=== PATIENT | male | born 1990 | race American Indian/Alaskan Native ===

== ENCOUNTER 2020-08-13 12:15 | Emergency (ER) | payer SELFPAY ==
[2020-08-13] MEDS ORDERED: Thiamine 100 MG Tab PO ONE (12:21)
--- NOTE | 2020-08-13 12:23 | EDM.PDOCBH ---
ED HPI GENERAL MEDICAL PROBLEM - General Chief Complaint: Drug or Alcohol Abuse Stated Complaint: [facility] Time Seen by Provider: 08/13/20 12:20 Source of Information: Reports: Patient, EMS, Old Records History Limitations: Reports: No Limitations - History of Present Illness INITIAL COMMENTS - FREE TEXT/NARRATIVE: 30 yo male here via EMS after a couple week course of binge drinking. Wants to go to [facility], but if they don't have beds available "he'll just go home". Was upset over the break up of a girl. Has also been taking a friend's clonidine 0.1 mg tablets recently, not sure how he has been taking them. Onset: Unknown/Unsure Duration: Chronic Location: Reports: Generalized Quality: Reports: Other (pain not reported) Improves with: Reports: Other (not drinking alcohol) Worsens with: Reports: Other (drinking alcohol) Context: Reports: Other (See HPI) Left Lower Chest Pain Score (Numeric/FACES): 5 - Related Data Allergies Allergy/AdvReac Type Severity Reaction Status Date / Time No Known Allergies Allergy Verified 04/17/15 00:18 Home Meds: Home Meds NK [No Known Home Meds] 04/17/15 [History] Past Medical History - Past Health History Medical/Surgical History: Denies Medical/Surgical History ED ROS GENERAL - Review of Systems Review Of Systems: See Below Constitutional: Reports: No Symptoms HEENT: Reports: No Symptoms Respiratory: Reports: No Symptoms Cardiovascular: Reports: No Symptoms GI/Abdominal: Reports: No Symptoms : Reports: No Symptoms Musculoskeletal: Reports: No Symptoms Skin: Reports: No Symptoms Neurological: Reports: Numbness (some leg bilat numbness reported) Psychiatric: Reports: Anxiety ED EXAM, BEHAVIORAL HEALTH - Physical Exam Exam: See Below Exam Limited By: No Limitations General Appearance: Alert, WD/WN, No Apparent Distress, Anxious Eye Exam: Bilateral Eye: Normal Inspection Ears: Normal External Exam, Normal Canal, Hearing Grossly Normal Nose: Normal Inspection, No Blood Throat/Mouth: Normal Inspection, Normal Lips, Normal Oropharynx, Normal Voice, No Airway Compromise Head: Atraumatic, Normocephalic Neck: Normal Inspection Respiratory/Chest: No Respiratory Distress, Lungs Clear, Normal Breath Sounds, No Accessory Muscle Use Cardiovascular: Regular Rate, Rhythm, No Edema, Tachycardia GI/Abdominal: Normal Bowel Sounds, Soft, Non-Tender, No Distention Back Exam: Normal Inspection Extremities: Normal Inspection, Normal Range of Motion, Non-Tender, No Pedal Edema Neurological: Alert, Normal Mood/Affect, CN II-XII Intact, Normal Cognition, No Motor/Sensory Deficits, Oriented x 3 Psychiatric: Alert, Normal Affect, Normal Cognition, Normal Mood, Oriented Skin Exam: Warm, Dry, Intact, Normal color, No rash COURSE, BEHAVIORAL HEALTH COMP - Course Vital Signs: Last Vital Signs Temp 36.5 C 08/13/20 13:44 Pulse 65 08/13/20 13:44 Resp 18 08/13/20 13:44 BP 114/77 08/13/20 13:44 Pulse Ox 97 08/13/20 13:44 Orders, Labs, Meds: Laboratory Tests 08/13/20 08/13/20 08/13/20 Range/Units 12:23 12:30 13:51 Urine Opiates Screen Negative (NEGATIVE) Ur Oxycodone Screen Negative (NEGATIVE) Urine Methadone Screen Negative (NEGATIVE) Ur Propoxyphene Screen Negative (NEGATIVE) Ur Barbiturates Screen Negative (NEGATIVE) Ur Tricyclics Screen Negative (NEGATIVE) Ur Phencyclidine Scrn Negative (NEGATIVE) Ur Amphetamine Screen Negative (NEGATIVE) U Methamphetamines Scrn Negative (NEGATIVE) Urine MDMA Screen Negative (NEGATIVE) U Benzodiazepines Scrn Negative (NEGATIVE) U Cocaine Metab Screen Negative (NEGATIVE) U Marijuana (THC) Screen Presumptive positive H (NEGATIVE) Ethyl Alcohol 211 mg/dL SARS CoV-2 RNA Rapid RICKI Negative Medications Discontinued Medications Generic Name Dose Route Start Last Admin Trade Name Freq PRN Reason Stop Dose Admin Lorazepam 2 mg 08/13/20 13:56 08/13/20 14:01 Lorazepam 1 Mg Tab PO 08/13/20 13:57 2 mg ONETIME ONE Administration Thiamine HCl 100 mg 08/13/20 12:21 08/13/20 12:41 Thiamine 100 Mg Tab PO 08/13/20 12:22 100 mg ONETIME ONE Administration Departure - Departure Time of Disposition: 14:12 Disposition: DC/Tfer to Other 70 Condition: Fair Clinical Impression: Alcohol abuse, Marijuana use Alcohol intoxication Qualifiers: Complication of substance-induced condition: with unspecified complication Qualified Code(s): F10.929 - Alcohol use, unspecified with intoxication, unspecified - Discharge Information *PRESCRIPTION DRUG MONITORING PROGRAM REVIEWED*: Not Applicable *COPY OF PRESCRIPTION DRUG MONITORING REPORT IN PATIENT IMELDA: Not Applicable Instructions: Alcohol Abuse and Dependence Information, Adult Referrals: PCP,None [Primary Care Provider] - Forms: ED Department Discharge Additional Instructions: Medically cleared for Jeronimo Goel. Sepsis Event Note (ED) - Focused Exam Vital Signs: Vital Signs Temp Pulse Resp BP Pulse Ox 08/13/20 13:44 36.5 C 65 18 114/77 97 08/13/20 13:03 65 114/77 97
[2020-08-13 13:12] VITALS: BP 114/77; PULSE 65
[2020-08-13] MEDS ORDERED: LORazepam 1 MG Tab PO ONE (13:56)
== END 2020-08-13 15:20 | disposition other institution (70) ==
LOC: JP.ED 12:15
DX: F10.129 Alcohol abuse with intoxication, unspecified (principal); F12.90 Cannabis use, unspecified, uncomplicated; Z20.822 Contact with and (suspected) exposure to COVID-19; Y90.7 Blood alcohol level of 200-239 mg/100 ml
CPT/HCPCS: 36415; 80305; 80307; 87635; 99283; 99285; A9270; U0002